=== PATIENT | female | born 1990 | race Caucasian/White ===

== ENCOUNTER 2020-11-27 11:09 | Emergency (ER) | payer OTHER, SELFPAY ==
--- NOTE | ~2020-11-27 | XR_ITS ---
XR foot LT min 3V DATE: 11/27/2020 11:40 INDICATION: Foot injury, pain TECHNIQUE: 4 views COMPARISON: None FINDINGS: Status post arthrodesis at the first and second tarsometatarsal joints. No recent fracture or dislocation, periosteal reaction or bone destruction is detected. IMPRESSION: Status post first and second tarsometatarsal arthrodesis Reviewed, dictated and finalized at location B.
--- NOTE | ~2020-11-27 | XR_ITS ---
XR ankle LT min 3V DATE: 11/27/2020 11:40 INDICATION: Left ankle injury, pain TECHNIQUE: 4 views COMPARISON: 05/30/2019 left ankle FINDINGS: No fracture or dislocation of the ankle or disruption of the ankle mortise. No ankle soft t issue swelling. Status post arthrodesis at the first and second tarsometatarsal joints. IMPRESSION: No significant abnormality of left ankle Postoperative change of first and second tarsometatarsal joints Reviewed, dictated and finalized at location B.
[2020-11-27 11:24] VITALS: BP 129/85; PULSE 104; RESP 18; TEMP 36.3; O2SAT 100
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
== END 2020-11-27 12:13 | disposition home or self-care (01) ==
PROVIDERS: Emergency Provider Nurse Practitioner
DX: S93.692A Other sprain of left foot, initial encounter (principal); V18.4XXA Pedal cycle driver injured in noncollision transport accident in traffic accident, initial encounter
CPT/HCPCS: 73610; 73630; 99214; G0463